=== PATIENT | male | born 1975 | race Caucasian/White ===

== ENCOUNTER 2019-12-28 10:32 | Emergency (ER) | payer SELFPAY ==
[~2019-12-28] VITALS: Ht 182.9 cm; Wt 80.0 kg
[2019-12-28] MEDS ORDERED: KEFLEX500 M1 PO (11:00)
[2019-12-28] MEDS ORDERED: BACTRIM DS1 TAB PO (11:00)
[2019-12-28 11:25] VITALS: BP 139/82
== END 2019-12-28 11:25 | disposition home or self-care (01) | DRG 603 ==
LOC: ED 10:32
DX: L02.412 Cutaneous abscess of left axilla (principal)

== ENCOUNTER 2020-10-26 17:16 | Emergency (ER) | payer SELFPAY ==
[~2020-10-26] VITALS: Ht 182.9 cm; Wt 73.0 kg
[~2020-10-26 17:16] MED LIST: BACTRIM DS1 TAB PO; KEFLEX500 M1 PO
[2020-10-26] MEDS ORDERED: BACTRIM DS1 TAB PO (18:31)
[2020-10-26] MEDS ORDERED: CEPHALEXIN500 M1 PO (18:31)
[2020-10-26 18:45] VITALS: BP 143/82
== END 2020-10-26 18:52 | disposition home or self-care (01) | DRG 603 ==
LOC: ED 17:16
DX: L03.221 Cellulitis of neck (principal); F17.210 Nicotine dependence, cigarettes, uncomplicated